=== PATIENT | female | born 1990 | race Caucasian/White ===

== ENCOUNTER 2017-03-07 11:54 | Emergency (ER) | payer OTHER ==
[2017-03-07 12:01] VITALS: RESP 16; TEMP 99
[2017-03-07] MEDS ORDERED: IBUPROFEN 600 MG TAB PO ONE (12:11)
[2017-03-07] MEDS ORDERED: AMOXICILLIN/CLAVULANATE POT 875/125 MG TAB PO ONE (14:03)
--- NOTE | 2017-03-07 14:07 | EDPHY ---
H & P Smoking Status: Never smoked Time Seen by Provider: 03/07/17 12:03 HPI/ROS: CHIEF COMPLAINT: Dog bite right hand HISTORY OF PRESENT ILLNESS: 26-year-old female presents to the emergency department with a dog bite to her right hand. The patient was at the dog park with her own dog and another dog that was off leash came up to her dog and her dog bit the other dog. She was trying to pull her dog off and was bit by her own dog. The incident happened just prior to arrival. She believes her tetanus shot is current. Her dog is up-to-date on rabies vaccine. She is right -hand dominant. ROS: Denies numbness or tingling in the fingers, retained foreign body, pain in her right wrist or elbow. (Kiki Hirsch) Past Medical/Surgical History: Negative (Kiki Hirsch) Social History: (Kiki Hirsch) Physical Exam: On examination, the patient has puncture wound to the dorsal medial aspect of the right wrist. There is also a small puncture wound to the dorsal aspect of the right hand to the base of the 1st metacarpal. She has a complex 3 cm irregular laceration to the dorsal aspect of the right thumb overlying proximal phalanx. Full range of motion of his fingers. She has pain with palpation over the proximal phalanx. No rotational deformities noted. No evidence of retained foreign body. Full range of motion of her right wrist. Small superficial abrasion to the dorsal medial distal aspect of the right 3rd finger. (Kiki Hirsch) Constitutional: Initial Vital Signs Temperature (C) 37.2 C 03/07/17 11:55 Heart Rate 103 H 03/07/17 11:55 Respiratory Rate 16 03/07/17 11:55 Blood Pressure 128/79 H 03/07/17 11:55 O2 Sat (%) 98 03/07/17 11:55 Allergies/Adverse Reactions: albuterol Allergy (Unknown, Verified 03/07/17 11:59) Home Medications: Medication Instructions Recorded Amoxicillin/Clavulanate Pot 875 mg PO BID #14 tab 03/07/17 [Augmentin 875 mg tab] oxyCODONE/APAP 5/325 [Percocet 1 - 2 tab PO Q4-6PRN PRN #15 tab 03/07/17 5/325] MDM/Departure - [facility] Imaging: I viewed and interpreted images myself - [facility] Diagnostics: X-rays of the right hand were reviewed by myself and revealed no fractures. ( Kiki Hirsch) Procedures: Laceration repair. Verbal consent was obtained from the patient. The 3 cm irregular laceration on the right thumb was anesthetized using 1% lidocaine with epinephrine. The wound was irrigated with saline, draped and explored to its base with a gloved finger. There were no deep structures involved. No tendon injury was identified. The wound was repaired with 4 0 Ethilon, 6 sutures. The wound repair was complex. The procedure was performed by myself. The patient had 2 other puncture wounds to the dorsal medial aspect of her right wrist and dorsal aspect of the right hand overlying the base of the 1st proximal metacarpal. These wounds were anesthetized with 1% lidocaine with epinephrine and they were thoroughly irrigated. No sutures applied to these wounds. (Kiki Hirsch) Medications Given: Discontinued Medications Amoxicillin/Clavulanate Potassium (Augmentin 875mg) 875 mg PO EDNOW ONE PRN Reason: Protocol Stop: 03/07/17 14:04 Last Admin: 03/07/17 14:17 Dose: 875 mg Ibuprofen (Motrin) 600 mg PO EDNOW ONE Stop: 03/07/17 12:12 Last Admin: 03/07/17 12:18 Dose: 600 mg ED Course/Re-evaluation: 26-year-old female presents with dog bite. Animal Control was contacted. This was her own dog who is current on rabies vaccine. The patient believes her tetanus shot is current. The patient was started on oral Augmentin. She is aware of the risk of infection. Her laceration was repaired, see procedure note. The patient will return if she notices any signs or symptoms of infection such as redness, swelling, increased pain, fever, purulent drainage. (Kiki Hirsch) The patient wasevaluatedand managed by themidlevel provider. Idiscussed the patient's presentation and course with thephysicianassistantor nurse practitionerand agree with theevaluation. My co-signature indicates that I have reviewed this chart and I agree with the findings and plan of care as documented. I am the secondary supervisingphysician. Complex hand lacerations. Decision made to repair despite increased risk of infection. Patient aware and in agreement. (Altagracia Estrella Sid) - Depart Disposition: Home, Routine, Self-Care Clinical Impression: Dog bite of right hand Condition: Good Instructions: Animal Bite (ED), Care For Your Stitches (ED), Laceration (ED), Acute Wounds (ED) Additional Instructions: Wound Care Follow-Up: Removal of sutures in 10 days. Suture removal is complimentary in uncomplicated cases. Infection or abnormal findings would require reevaluation by the MD. In that case, you may be billed. Augmentin 875 mg twice daily for 7 days to prevent infection. Return to the emergency department if he notices any signs or symptoms of infection such as redness, swelling, increased pain, fever, purulent drainage. Keep wound dry, clean and protected. Ibuprofen 600 mg every 8 hours as needed for pain. Percocet for severe pain as directed. Caution this medication will make you drowsy. Make sure your tetanus shot is current and update this if needed in the next 2 days. Prescriptions: Amoxicillin/Clavulanate Pot [Augmentin 875 mg tab] 875 mg PO BID #14 tab oxyCODONE/APAP 5/325 [Percocet 5/325] 1 - 2 tab PO Q4-6PRN PRN #15 tab PRN Reason: For Moderate To Severe Pain Referrals: Shannan Kramer MD [Medical Doctor] - 2-3 days, if not improved (Hand surgeon on- call)
[2017-03-07 14:38] VITALS: BP 117/70; PULSE 69; O2SAT 96
== END 2017-03-07 14:39 | disposition home or self-care (01) ==
PROC: 0HQFXZZ Repair Right Hand Skin, External Approach (ICD-10-PCS; principal; 2017-03-07)
DX: S61.451A Open bite of right hand, initial encounter (principal); S61.011A Laceration without foreign body of right thumb without damage to nail, initial encounter; W54.0XXA Bitten by dog, initial encounter; Y92.89 Other specified places as the place of occurrence of the external cause